=== PATIENT | male | born 1990 | race Caucasian/White ===

== ENCOUNTER 2018-12-23 00:10 | Emergency (ER) | payer BC, MEDICAID ==
[~2018-12-23] VITALS: Ht 167.6 cm; Wt 61.2 kg
[2018-12-23 00:24] VITALS: BP 120/85
[2018-12-23] MEDS ORDERED: LORazepam 2 MG/ML VIAL IVP ONE (00:40)
[2018-12-23] MEDS ORDERED: NACL 0.9% 1,000 ML IV ONE (00:40)
--- NOTE | 2018-12-23 00:47 | NUR ---
28 Y/O M BIB MOTHER WITH EOTH. PER PT " I CAME IN BECAUSE I'M AFRAID THAT I'M GOING TO GO INTO FATAL WITHDRAWAL. I'VE BEEN DRINKING HARD FOR THE LAST WEEK." AAOX4. SPEECH CLEAR BUT LOW. PERRL PRESENT. MEMORY INTACT. VSS.BILATERAL LUNGS CLEAR. O2 SATURATION AT 97% ON ROOM AIR. 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 ERMD NOTIFIED OF PT STATUS. WILL CONTINUE TO MONITOR.
[2018-12-23 00:59] LABS: BASOPHILS # (AUTO) 0.1 K/uL (0.00-0.22); BASOPHILS % (AUTO) 1.3 % (0.0-2.0); EOSINOPHILS % (AUTO) 0.1 % (0.0-4.0); HEMOGLOBIN 15.6 g/dL (12.0-18.0); LYMPHOCYTES # (AUTO) 1.3 K/uL (2.0-11.5); LYMPHOCYTES % (AUTO) 30.2 % (20.5-51.1); MEAN CORPUSCULAR HEMOGLOBIN 31 pg (27-31); MEAN CORPUSCULAR HGB CONC 34 g/dL (33-37); MEAN CORPUSCULAR VOLUME 92.5 fL (80-94); MONOCYTES # (AUTO) 0.5 K/uL (0.8-1.0); MONOCYTES % (AUTO) 12.4 % (1.7-9.3); NEUTROPHILS # (AUTO) 2.5 K/uL (1.8-7.7); PLATELET COUNT (AUTO) 260 K/uL (140-450); RED BLOOD CELL COUNT(AUTO) 4.97 MIL/uL (4.20-6.10); RED CELL DISTRIBUTION WIDTH 16.7 % (11.6-13.7); WHITE BLOOD COUNT (AUTO) 4.4 K/uL (4.8-10.8)
[2018-12-23 01:12] LABS: CARBON DIOXIDE 27.3 mmol/L (21-32); CHLORIDE 100 mmol/L (98-107); CREATININE 0.9 mg/dL (0.7-1.3); GFR ARICAN-AMERICAN 129 mL/min (>90); GLUCOSE 101 mg/dL (74-106); POTASSIUM 3.3 mmol/L (3.5-5.1); SODIUM SERUM 144 mmol/L (136-145); UREA NITROGEN, BLOOD 7 mg/dL (7-18)
[2018-12-23 01:21] LABS: ACETAMINOPHEN < 0.5 ug/ml (10-30); ALBUMIN 4.1 g/dL (3.4-5.0); ASPARTATE AMINOTRANSFERASE 43 U/L (15-37); SALICYLATE < 2.8 mg/dL (2.8-20.0); TOTAL BILIRUBIN 0.4 mg/dL (0.0-1.0)
--- NOTE | 2018-12-23 02:15 | NUR ---
Patient discharged with v/s stable. Written and verbal after care instructions given and explained. Patient verbalized understanding. Ambulatory with steady gait. All questions addressed prior to discharge. Advised to follow up with PMD and given resources for substance abuse.
[2018-12-23 02:16] VITALS: BP 118/67
[2018-12-24] MEDS ORDERED: ONDA8TAB PO (08:29)
[2018-12-24] MEDS ORDERED: KEP500 PO (08:29)
[2018-12-24] MEDS ORDERED: PAX10 PO (08:29)
[2018-12-24] MEDS ORDERED: LIB25 PO (08:29)
== END 2018-12-23 02:14 | disposition home or self-care (01) ==
LOC: MED 00:10
DX: F10.129 Alcohol abuse with intoxication, unspecified (principal); F32.9 Major depressive disorder, single episode, unspecified; Y90.2 Blood alcohol level of 40-59 mg/100 ml
CPT/HCPCS: 36415; 80053; 85025; 93005; 96374; 99284; G0480; G0482; J2060; J7030

== ENCOUNTER 2018-12-24 08:15 | Emergency (ER) | payer BC ==
[~2018-12-24] VITALS: Ht 167.6 cm; Wt 61.7 kg
[2018-12-24 08:20] VITALS: BP 149/117
--- NOTE | 2018-12-24 08:20 | NUR ---
Patient ambulated to bed 4. RN evaluating patient at bedside.
--- NOTE | 2018-12-24 08:25 | NUR ---
BIB FATHER C/O GENERALIZED WEAKNESS, STATES "I FEEL LIKE I'M GOING TO HAVE A SEIZURE" AND STATES "I'VE BEEN GETTING BLACKED OUT DRUNK FOR THE PAST 2 WEEKS AND DON'T REMEMBER WHEN MY LAST MEAL WAS." HX SEIZURE, DEPRESSION. PT STATED HIS LAST SEIZURE WAS LAST WEEK. PATIENT STATES HEADACHE PAIN OF 7/10 AT THIS TIME; PATIENT POSITIONED FOR COMFORT; HOB ELEVATED; BEDRAILS UP X2; BED DOWN. ER MD MADE AWARE OF PT STATUS.
[2018-12-24] MEDS ORDERED: ONDA8TAB PO (08:29)
[2018-12-24] MEDS ORDERED: PAX10 PO (08:29)
[2018-12-24] MEDS ORDERED: KEP500 PO (08:29)
[2018-12-24] MEDS ORDERED: LIB25 PO (08:29)
[2018-12-24] MEDS ORDERED: LORazepam 2 MG/ML VIAL IVP ONE (08:30)
[2018-12-24] MEDS ORDERED: NACL 0.9% 1,000 ML IV ONE (08:30)
[2018-12-24 08:48] LABS: BASOPHILS % (AUTO) 0.7 % (0.0-2.0); EOSINOPHILS % (AUTO) 0.1 % (0.0-4.0); HEMATOCRIT 40.7 % (36-52); HEMOGLOBIN 13.6 g/dL (12.0-18.0); LYMPHOCYTES # (AUTO) 1.5 K/uL (2.0-11.5); LYMPHOCYTES % (AUTO) 24.3 % (20.5-51.1); MEAN CORPUSCULAR HEMOGLOBIN 31 pg (27-31); MEAN CORPUSCULAR HGB CONC 33 g/dL (33-37); MEAN CORPUSCULAR VOLUME 93.3 fL (80-94); MONOCYTES # (AUTO) 0.5 K/uL (0.8-1.0); MONOCYTES % (AUTO) 8.1 % (1.7-9.3); NEUTROPHILS # (AUTO) 4.2 K/uL (1.8-7.7); NEUTROPHILS % (AUTO) 66.8 % (42.2-75.2); PLATELET COUNT (AUTO) 187 K/uL (140-450); RED BLOOD CELL COUNT(AUTO) 4.37 MIL/uL (4.20-6.10); RED CELL DISTRIBUTION WIDTH 16.6 % (11.6-13.7); WHITE BLOOD COUNT (AUTO) 6.2 K/uL (4.8-10.8)
--- NOTE | 2018-12-24 08:56 | NUR ---
PT STATED HE IS UNABLE TO PROVIDE URINE AT THIS TIME.
[2018-12-24 09:00] LABS: ALBUMIN 3.5 g/dL (3.4-5.0); ANION GAP 18.5 (8-16); CARBON DIOXIDE 26.1 mmol/L (21-32); CREATININE 0.9 mg/dL (0.7-1.3); TOTAL BILIRUBIN 0.2 mg/dL (0.0-1.0)
--- NOTE | 2018-12-24 09:01 | NUR ---
Patient appears to be resting comfortably in bed. Vital Signs within normal limits. Respirations even and unlabored.
[2018-12-24 09:02] LABS: POTASSIUM 2.6 mmol/L (3.5-5.1)
[2018-12-24] MEDS ORDERED: KCL 20 MEQ/WATER INJ PREMIX 200 ML IV ONE (09:10)
--- NOTE | 2018-12-24 09:10 | NUR ---
Patient's father phone #
--- NOTE | 2018-12-24 09:10 | NUR ---
PATIENT REPORT TAKEN FROM ILIR GONZALEZ, CARE GIVEN TO JUAN FRANCISCO RN ORIENTED BY AMARILIS GONZALEZ.
--- NOTE | 2018-12-24 09:10 | NUR ---
Pt report given to AMARILIS GONZALEZ. Transfer of care at this time.
--- NOTE | 2018-12-24 09:41 | NUR ---
Patient asleep, easy to arouse, respiration even and unlabored on O2 via NC at 2LPM, VS WNL, KCL infusing at this time with no ASE noted at this time. IV site intact no s/s of complications noted at this time. Will continue to monitor closely.
--- NOTE | 2018-12-24 10:25 | NUR ---
MD WITH ORDERS TO DISCHARGE PATIENT WHEN KCL IV FINISH. PATIENT IN NO ACUTE DISTRESS AT THIS TIME, WILL CONTINUE TO MONITOR CLOSELY.
[2018-12-24 11:30] VITALS: BP 142/92
--- NOTE | 2018-12-24 11:54 | NUR ---
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
--- NOTE | 2018-12-24 12:07 | NUR ---
PATIENT IV DISCONTINUED, VSS, AMBULATED TO THE HALLWAY WITH STEADY GAIT, IN NO ACUTE DISTRESS, WILL CONTINUE TO MONITOR CLOSELY.
--- NOTE | 2018-12-24 12:26 | NUR ---
DISCHARGED BY DR. DOUGHERTY, IV REMOVED, NO ACTIVE BLEEDING NOTED, WITH DRESSING INPLACE, PRESCRIPTION KEPPRA 500MG GIVEN, WHEELED TO CAR ACCOMPANIED BY FATHER.
== END 2018-12-24 12:26 | disposition home or self-care (01) ==
LOC: MED 08:15
DX: G40.909 Epilepsy, unspecified, not intractable, without status epilepticus (principal); E87.6 Hypokalemia; F32.9 Major depressive disorder, single episode, unspecified; Z79.899 Other long term (current) drug therapy
CPT/HCPCS: 36415; 80053; 85025; 96361; 96365; 96366; 96375; 99283; G0482; J2060; J3480; J7030

== ENCOUNTER 2019-01-12 16:58 | Emergency (ER) | payer BC ==
[~2019-01-12] VITALS: Ht 167.6 cm; Wt 61.2 kg
[~2019-01-12 16:58] MED LIST: KEP500 PO; LIB25 PO; ONDA8TAB PO; PAX10 PO
[2019-01-12 16:59] VITALS: BP 122/73
--- NOTE | 2019-01-12 17:15 | NUR ---
Patient transferred to bed 3 via wheelchair by tech. RN evaluating patient at bedside.
--- NOTE | 2019-01-12 17:25 | NUR ---
PT STATES HE FEELS LIKE HE IS GONNA HAVE A SEIZURE. 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 LAST SEIZURE WAS 2 YEARS AGO. PT HAS BEEN BINGE DRINKING SINCE SATURDAY, LAST DRINK THIS MORNING. REPORTS GENERALIZED WEAKNESS. SEIZURE PRECAUTIONS INITIATED; PADDED SIDERAILS, GURNEY LOCKED AND IN LOWEST POSITION. MOTHER AT BEDSIDE.VSS. ERMD TO EVALUATE PT.
[2019-01-12] MEDS ORDERED: ONDANSETRON 4 MG/2 ML VIAL IVP ONE (17:55)
[2019-01-12] MEDS ORDERED: NACL 0.9% 1,000 ML IV ONE (17:55)
[2019-01-12 18:28] LABS: BASOPHILS # (AUTO) 0.1 K/uL (0.00-0.22); BASOPHILS % (AUTO) 1.3 % (0.0-2.0); EOSINOPHILS % (AUTO) 0.2 % (0.0-4.0); HEMATOCRIT 44.5 % (36-52); LYMPHOCYTES # (AUTO) 2.3 K/uL (2.0-11.5); MEAN CORPUSCULAR HEMOGLOBIN 32 pg (27-31); MEAN CORPUSCULAR HGB CONC 34 g/dL (33-37); MEAN CORPUSCULAR VOLUME 93.3 fL (80-94); MONOCYTES # (AUTO) 0.4 K/uL (0.8-1.0); MONOCYTES % (AUTO) 8.2 % (1.7-9.3); NEUTROPHILS # (AUTO) 1.9 K/uL (1.8-7.7); NEUTROPHILS % (AUTO) 41.3 % (42.2-75.2); PLATELET COUNT (AUTO) 266 K/uL (140-450); RED BLOOD CELL COUNT(AUTO) 4.77 MIL/uL (4.20-6.10); RED CELL DISTRIBUTION WIDTH 16.2 % (11.6-13.7); WHITE BLOOD COUNT (AUTO) 4.6 K/uL (4.8-10.8)
[2019-01-12 18:42] LABS: ALBUMIN 4.2 g/dL (3.4-5.0); ANION GAP 18.1 (8-16); CARBON DIOXIDE 26.4 mmol/L (21-32); CREATININE 0.9 mg/dL (0.7-1.3); POTASSIUM 3.5 mmol/L (3.5-5.1); TOTAL BILIRUBIN 0.6 mg/dL (0.0-1.0)
[2019-01-12] MEDS ORDERED: ONDANSETRON 4 MG ODT PO ONE (20:50)
[2019-01-12 22:57] VITALS: BP 123/85
--- NOTE | 2019-01-12 22:59 | NUR ---
Patient discharged with v/s stable. Written and verbal after care instructions given and explained. Patient verbalized understanding. Ambulatory with steady gait. All questions addressed prior to discharge. Advised to follow up with PMD.
== END 2019-01-12 22:57 | disposition home or self-care (01) ==
LOC: MED 16:58
DX: F10.10 Alcohol abuse, uncomplicated (principal); G40.909 Epilepsy, unspecified, not intractable, without status epilepticus; F32.9 Major depressive disorder, single episode, unspecified; Z79.899 Other long term (current) drug therapy
CPT/HCPCS: 36415; 80053; 85025; 96374; 99283; J2405; J7030; Q0162

== ENCOUNTER 2019-03-06 07:29 | Emergency (ER) | payer BC, MEDICAID ==
[~2019-03-06] VITALS: Ht 167.6 cm; Wt 61.2 kg
[2019-03-06 07:35] VITALS: BP 123/92
[2019-03-06] MEDS ORDERED: NACL 0.9% 1,000 ML IV ONE ×2 (07:50→09:50)
[2019-03-06 08:03] LABS: BASOPHILS % (AUTO) 0.2 % (0.0-2.0); EOSINOPHILS % (AUTO) 0.2 % (0.0-4.0); HEMOGLOBIN 13.7 g/dL (12.0-18.0); LYMPHOCYTES # (AUTO) 1.1 K/uL (2.0-11.5); LYMPHOCYTES % (AUTO) 21.3 % (20.5-51.1); MEAN CORPUSCULAR HEMOGLOBIN 31 pg (27-31); MEAN CORPUSCULAR HGB CONC 33 g/dL (33-37); MEAN CORPUSCULAR VOLUME 95.7 fL (80-94); MONOCYTES # (AUTO) 0.3 K/uL (0.8-1.0); MONOCYTES % (AUTO) 6.5 % (1.7-9.3); NEUTROPHILS # (AUTO) 3.7 K/uL (1.8-7.7); NEUTROPHILS % (AUTO) 71.8 % (42.2-75.2); PLATELET COUNT (AUTO) 108 K/uL (140-450); RED BLOOD CELL COUNT(AUTO) 4.39 MIL/uL (4.20-6.10); RED CELL DISTRIBUTION WIDTH 15.7 % (11.6-13.7); WHITE BLOOD COUNT (AUTO) 5.2 K/uL (4.8-10.8)
[2019-03-06 08:17] LABS: ANION GAP 27.3 (8-16); CARBON DIOXIDE 19.3 mmol/L (21-32); CREATININE 1.2 mg/dL (0.7-1.3); POTASSIUM 3.6 mmol/L (3.5-5.1)
[2019-03-06] MEDS ORDERED: LORazepam 2 MG/ML VIAL IVP ONE (08:20)
[2019-03-06 08:22] LABS: ALBUMIN 3.8 g/dL (3.4-5.0); TOTAL BILIRUBIN 0.8 mg/dL (0.0-1.0)
[2019-03-06] MEDS ORDERED: LORazepam 2 MG/ML VIAL ONE (08:22)
[2019-03-06 11:36] VITALS: BP 124/70
== END 2019-03-06 11:36 | disposition home or self-care (01) ==
LOC: MED 07:29
DX: S00.11XA Contusion of right eyelid and periocular area, initial encounter (principal); F10.129 Alcohol abuse with intoxication, unspecified; R56.9 Unspecified convulsions; F17.200 Nicotine dependence, unspecified, uncomplicated; Z79.899 Other long term (current) drug therapy; F12.90 Cannabis use, unspecified, uncomplicated; W19.XXXA Unspecified fall, initial encounter; Y93.89 Activity, other specified; Y92.89 Other specified places as the place of occurrence of the external cause; Y99.8 Other external cause status
CPT/HCPCS: 36415; 80053; 81002; 85025; 93005; 96374; 99284; J2060; J7030

== ENCOUNTER 2019-05-24 19:51 | Emergency (ER) | payer MEDICAID ==
[~2019-05-24] VITALS: Ht 167.6 cm; Wt 65.8 kg
[~2019-05-24 19:51] MED LIST changes: -ONDA8TAB PO; -PAX10 PO
[2019-05-24 19:55] VITALS: BP 131/77
--- NOTE | 2019-05-24 19:55 | NUR ---
TO BED # 11 AMBULATORY
--- NOTE | 2019-05-24 20:02 | NUR ---
28 YEAR OLD MALE BROUGHT IN BY MOTHER FOR ALCOHOL INTOXICATION. PATIENT STATES THAT HE WAS DRINKING VODKA FROM A VODKA BOTTLE AND HAD FALLEN 3X IN THE PAST FEW HOURS. PATIENT STATES THAT HE HAD HIT HIS HEAD. AOX4, GCS 14 (E3,V5,M6), PATIENT BREATHING EVEN AND UNLABORED, SKIN WARM AND DRY. PATIENT ALERT AND ORIENTED. BED IN LOWEST POSITION, LOCKED, BED RAIL UPX2.
--- NOTE | 2019-05-24 20:02 | NUR ---
PATIENT BACK OF HEAD CHECKED, ABSENT OF BLEEDING, BRUISING, INFLAMMATION, OR OPEN WOUND.
[2019-05-24 20:38] VITALS: BP 131/77
--- NOTE | 2019-05-24 20:38 | NUR ---
Patient discharged with v/s stable. Written and verbal after care instructions ABOUT ALCOHOL INTOXICATION AND SEIZURES given and explained. Patient verbalized understanding. Ambulatory with steady gait. All questions addressed prior to discharge. Advised to follow up with PMD. PATIENT GIVEN INFORMATION ABOUT SUBSTANCE ABUSE AND ALCOHOL PROGRAMS.
== END 2019-05-24 20:38 | disposition home or self-care (01) ==
LOC: MED 19:51
DX: F10.129 Alcohol abuse with intoxication, unspecified (principal); R56.9 Unspecified convulsions; R11.2 Nausea with vomiting, unspecified; Z79.899 Other long term (current) drug therapy
CPT/HCPCS: 99281

== ENCOUNTER 2019-05-25 06:30 | Emergency (ER) | payer MEDICAID ==
[~2019-05-25] VITALS: Ht 167.6 cm; Wt 63.5 kg
[2019-05-25 06:35] VITALS: BP 140/87
--- NOTE | 2019-05-25 06:35 | NUR ---
to bed # 08 ambulatory
[2019-05-25] MEDS ORDERED: NACL 0.9% 1,000 ML IV SCH (06:39)
[2019-05-25] MEDS ORDERED: ONDANSETRON 4 MG/2 ML VIAL IVP ONE (06:40)
[2019-05-25] MEDS ORDERED: KETOROLAC 30 MG/ML VIAL IVP ONE (06:40)
--- NOTE | 2019-05-25 06:45 | NUR ---
28 YO M BIB MOM PRESENTS TO ED C/O 11/10 SHARP RUQ PAIN "UNDERNEATH MY RIBS" THATS STARTED APPROX 4 HOURS AGO. PT WAS SEEN IN ED HOURS PRIOR FOR ETOH INTOXICATION. PT ADMITS TO DRINKING "3 BOTTLES OF VODKA EVERY DAY FOR ABOUT A WEEK". REPORTS NAUSEA. DENIES VOMITING, DIARRHEA. REPORTS BRIGHT RED BLOOD IN LOOSE STOOL X 1 AT 0400. PT ALSO STATES "I AM HAVING AURAS THAT USUALLY HAPPEN BEFORE I HAVE A SEIZURE. I'M SEEING FLASHING LIGHTS AND HAVING BLURRY VISION ON THE LEFT SIDE". FACE SYMETRY IN TACT. EYES PERRLA. EQUAL STRENGTH NOTED TO UPPER AND LOWER EXTREMETIES. ABD IS SOFT, PLIABLE, NON TENDER. BOWEL SOUNDS ACTIVE +4. PMH-- SEIZURES RX-- KEPPRA 500 MG BID
--- NOTE | 2019-05-25 07:05 | NUR ---
MEDICATED WITH 4 MG IVP ZOFRAN AND 60 MG IVP TORADOL. WILL REASSESS.
--- NOTE | 2019-05-25 07:15 | NUR ---
bedside report received from LISA Valencia for continuation of care
--- NOTE | 2019-05-25 07:15 | NUR ---
BEDSIDE REPORT GIVEN TO LISA RODRIGUEZ. TRANSFER OF CARE AT THIS TIME.
[2019-05-25 07:16] LABS: BASOPHILS % (AUTO) 0.2 % (0.0-2.0); EOSINOPHILS % (AUTO) 0.1 % (0.0-4.0); HEMATOCRIT 42.4 % (36-52); HEMOGLOBIN 14.4 g/dL (12.0-18.0); LYMPHOCYTES # (AUTO) 1.6 K/uL (2.0-11.5); LYMPHOCYTES % (AUTO) 17.9 % (20.5-51.1); MEAN CORPUSCULAR HEMOGLOBIN 32 pg (27-31); MEAN CORPUSCULAR HGB CONC 34 g/dL (33-37); MEAN CORPUSCULAR VOLUME 92.9 fL (80-94); MONOCYTES # (AUTO) 0.6 K/uL (0.8-1.0); MONOCYTES % (AUTO) 6.9 % (1.7-9.3); NEUTROPHILS # (AUTO) 6.8 K/uL (1.8-7.7); NEUTROPHILS % (AUTO) 74.9 % (42.2-75.2); PLATELET COUNT (AUTO) 165 K/uL (140-450); RED BLOOD CELL COUNT(AUTO) 4.56 MIL/uL (4.20-6.10); WHITE BLOOD COUNT (AUTO) 9.1 K/uL (4.8-10.8)
[2019-05-25 07:20] LABS: ANION GAP 21.3 (8-16); CARBON DIOXIDE 23.1 mmol/L (21-32); CREATININE 0.8 mg/dL (0.7-1.3); POTASSIUM 3.4 mmol/L (3.5-5.1)
[2019-05-25 07:25] LABS: PROTHROMBIN TIME 8.9 secs (10.8-13.4)
[2019-05-25 07:26] LABS: ALBUMIN 4.1 g/dL (3.4-5.0); TOTAL BILIRUBIN 1.1 mg/dL (0.0-1.0)
[2019-05-25] MEDS ORDERED: DICYCLOMINE HCL LIQUID 20 MG, ALUMINUM HYD/MAG/SIMETHICONE 30 ML, LIDOCAINE VISCOUS 2% ... PO ONE ×3 (07:30)
[2019-05-25] MEDS ORDERED: NACL 0.9% 1,000 ML IV ONE (07:30)
[2019-05-25] MEDS ORDERED: ALUMINUM HYD/MAG/SIMETHICONE 30 ML UDC ONE (07:32)
[2019-05-25] MEDS ORDERED: DICYCLOMINE HCL LIQUID 10 MG/5 ML UDC ONE (07:32)
[2019-05-25] MEDS ORDERED: LIDOCAINE VISCOUS 2% 20 ML UDC ONE (07:32)
--- NOTE | 2019-05-25 08:10 | NUR ---
PT RESTING IN BED, NO NEW NEEDS AT THIS TIME
--- NOTE | 2019-05-25 08:55 | NUR ---
PT REQUESTING TO BE D/C WITH "WITHDRAWL MEDICATION". NOTIFIED DR. GIL AND HE WILL ADMINISTER 1 DOSE OF LIBRIUM IN ER, BUT WILL NOT SEND PT HOME WITH MEDICATION.
[2019-05-25] MEDS ORDERED: chlordiazePOXIDE 25 MG CAP PO SCH (09:00)
[2019-05-25 09:16] VITALS: BP 121/78
--- NOTE | 2019-05-25 09:18 | NUR ---
Patient discharged with v/s stable. Written and verbal after care instructions given and explained. Patient alert, oriented and verbalized understanding of instructions. Ambulatory with steady gait. All questions addressed prior to discharge. ID band removed. Patient advised to follow up with PMD. Rx of OMEPRAZOLE & MYLANTA given. Patient educated on indication of medication including possible reaction and side effects. Opportunity to ask questions provided and answered.
== END 2019-05-25 09:18 | disposition home or self-care (01) ==
LOC: MED 06:30
DX: K29.20 Alcoholic gastritis without bleeding (principal); E86.0 Dehydration; F17.200 Nicotine dependence, unspecified, uncomplicated; Z79.899 Other long term (current) drug therapy
CPT/HCPCS: 36415; 80053; 83690; 85025; 85610; 85730; 96361; 96374; 96375; 99283; G0482; J1885; J2405; J7030